=== PATIENT | female | born 1935 | race Caucasian/White ===

== ENCOUNTER 2017-01-04 10:20 | Emergency (ER) | payer MEDICARE ==
[~2017-01-04] VITALS: Ht 160 cm; Wt 63.5 kg
[2017-01-04 10:20] VITALS: BP 168/83; PULSE 93; RESP 19; TEMP 98.5; O2SAT 99
--- NOTE | 2017-01-04 10:20 | NUR ---
BROUGHT IN BY [facility], PLACED IN BED #4 AND TRIAGED. REPORT GIVEN TO RAMESH
--- NOTE | 2017-01-04 10:48 | NUR ---
pt was openning the door,the door knob was off,she fell on the side, c/o right upper arm pain, no ko. no deformity noted. + distal pulse. pt [id number].no distress.
--- NOTE | 2017-01-04 10:51 | NUR ---
ER at bedside examining patient.
--- NOTE | 2017-01-04 11:10 | NUR ---
transport to [facility] via [facility]
[2017-01-04 11:30] VITALS: BP 152/83; PULSE 93; RESP 19; TEMP 98.5; O2SAT 99
== END 2017-01-04 11:30 | disposition home or self-care (01) ==
LOC: SED 10:20
DX: M25.511 Pain in right shoulder (principal); Z88.6 Allergy status to analgesic agent; Z88.8 Allergy status to other drugs, medicaments and biological substances
CPT/HCPCS: 73030; 73060-TC; 99284